=== PATIENT | male | born 1980 | race Caucasian/White ===

== ENCOUNTER 2016-07-15 11:23 | Inpatient (IN) | payer OTHER ==
[2016-07-15 13:36] VITALS: BMI 26.6
--- NOTE | 2016-07-15 14:35 | HP ---
CIWA Score - CIWA Score Nausea/Vomitin-No Nausea/No Vomiting Muscle Tremors: 4-Moderate,w/Arms Extend Anxiety: 2 Agitation: 2 Paroxysmal Sweats: 3 Orientation: 2-Disoriented Date<2 days Tacttile Disturbances: 2-Mild Itch/Numbness/Burn Auditory Disturbances: 0-None Visual Disturbances: 2-Mild Sensitivity Headache: 0-None Present CIWA-Ar Total Score: 17 Admission ROS S - HPI Chief Complaint: Pt. is here to Detox from Alcohol and Xanax. Allergies/Adverse Reactions: Allergies Allergy/AdvReac Type Severity Reaction Status Date / Time No Known Drug Allergies Allergy Severe Hives Verified 07/15/16 13:36 omega-3 fatty acids Allergy Severe Hives Verified 07/15/16 13:36 [From [place] [employer]-1000] [place] [employer] Allergy Unknown Hives Verified 07/15/16 13:36 [From [place] [employer]-1000] History of Present Illness: "Pt. is 35 YO male here to Detox from Alcohol and Xanax. Pt. has had several previous Detox admissions at [facility]. Pt. is a MMTP / OTP client (cannot remember name of program). Daily dose of Methadone Maintenance: 60 mg; last taken, today , 07/15/2016. Exam Limitations: Intoxication, Other (Lethargy.) - Ebola screening Have you traveled outside of the country in the last 21 days: No Have you had contact with anyone from an Ebola affected area: No Have you been sick,other than usual withdrawal symptoms: No Do you have a fever: No - Review of Systems Constitutional: Diaphoresis, Malaise EENT: reports: No Symptoms Reported Respiratory: reports: No Symptoms reported Cardiac: reports: No Symptoms Reported GI: reports: No Symptoms Reported : reports: No Symptoms Reported Musculoskeletal: reports: No Symptoms Reported Integumentary: reports: Pruritus (Pt. reports Psoriasis on back, arms, hands, buttocks, thighs.) Neuro: reports: No Symptoms reported Endocrine: reports: No Symptoms Reported Hematology: reports: No Symptoms Reported Psychiatric: reports: Judgement Intact, Mood/Affect Appropiate, Anxious, Depressed, Disorientated (To Day / Date.) Other Systems: Reviewed and Negative Patient History - Patient Medical History Hx Anemia: No Hx Asthma: No Hx Chronic Obstructive Pulmonary Disease (COPD): No Hx Cancer: No Hx Cardiac Disorders: No Hx Congestive Heart Failure: No Hx Hypertension: No Hx Hypercholesterolemia: No Hx Pacemaker: No HX Cerebrovascular Accident: No Hx Seizures: No Hx Dementia: No Hx Diabetes: No Hx Gastrointestinal Disorders: No Hx Liver Disease: No Hx Genitourinary Disorders: No Hx Sexually Transmitted Disorders: No Hx Renal Disease (ESRD): No Hx Thyroid Disease: No Hx Human Immunodeficiency Virus (HIV): No (2013 last) Hx Hepatitis C: No (Last Tested a Few years Ago: NEGATIVE.) Hx Depression: Yes Hx Suicide Attempt: No (PATIENT DENIES CURRENT SI / HI.) Hx Bipolar Disorder: Yes (treated with depakote and seroquel) Hx Schizophrenia: No Other Medical History: Psoriasis. - Patient Surgical History Past Surgical History: No Hx Neurologic Surgery: No Hx Cataract Extraction: No Hx Cardiac Surgery: No Hx Lung Surgery: No Hx Breast Surgery: No Hx Breast Biopsy: No Hx Abdominal Surgery: No Hx Appendectomy: No Hx Cholecystectomy: No Hx Genitourinary Surgery: No Hx Section: No Hx Orthopedic Surgery: No Anesthesia Reaction: No - PPD History Previous Implant?: Yes Documented Results: Negative w/proof Date: 02/22/16 Results: 0 mm PPD to be Administered?: No - Reproductive History Patient is a Female of Child Bearing Age (11 -55 yrs old): No (PATIENT IS MALE.) - Smoking Cessation Smoking history: Current every day smoker Have you smoked in the past 12 months: Yes Aproximately how many cigarettes per day: 5 Cigars Per Day: 0 Hx Chewing Tobacco Use: No Initiated information on smoking cessation: Yes 'Breaking Loose' booklet given: 07/15/16 (GIVEN ON UNIT.) - Substance & Tx. History Hx Alcohol Use: Yes Hx Substance Use: Yes Substance Use Type: Alcohol, Cocaine, Heroin, Tranquilizers Hx Substance Use Treatment: Yes (Previous Detox admissions at [facility].) - Substances Abused Heroin Route: Injection Frequency: 3-6 times per week Amount used: 4 bags Age of first use: 18 Date of Last Use: 07/15/16 Cocaine Route: Injection Frequency: 3-6 times per week Amount used: $20-30 Age of first use: 33 Date of Last Use: 07/14/16 Alcohol-beer/vodka Route: Oral Frequency: Daily Amount used: 2-6 pks./2 pts. Age of first use: 14 Date of Last Use: 07/15/16 Xanax Route: Oral Frequency: Daily Amount used: 10 mg. Age of first use: 20 Date of Last Use: 07/14/16 Family Disease History - Family Disease History Family Disease History: CA: Father (alcohol; Tumor (Removed).), Other: Father, Brother (ETOH DEPENDENT) Admission Physical Exam BHS - Vital Signs Vital Signs: Vital Signs - 24 hr 07/15/16 13:34 Temperature 96.9 F L Pulse Rate 65 Respiratory 20 Rate - Physical General Appearance: Yes: Intoxicated, Tremorous, Other (Lethargic.) HEENTM: Yes: Hearing grossly Normal, Normocephalic, Normal Voice, KARMA, Tm's normal Respiratory: Yes: Chest Non-Tender, Lungs Clear, No Respiratory Distress Neck: Yes: No masses,lesions,Nodules, Supple, Trachea in good position Breast: Yes: Breast Exam Deferred Cardiology: Yes: Regular Rhythm, Regular Rate, S1, S2 Abdominal: Yes: Normal Bowel Sounds, Non Tender, Flat, Soft Genitourinary: Yes: Within Normal Limits Back: Yes: Normal Inspection Extremities: Yes: Normal Range of Motion, Non-Tender, Tremors Neurological: Yes: Normal Mood/Affect, Disoriented (To Day / Date.) Integumentary: Yes: Dry, Warm, Track Calderon (2 on Dorsum of Right Hand, Healed, No signs of Infection noted.), Other (Red macular lesions noted on face, bilateral arms and hands, back, and bilateral legs.) Lymphatic: Yes: Within Normal Limits - Diagnostic (1) Alcohol dependence with uncomplicated withdrawal Current Visit: Yes Status: Acute (2) Opioid dependence with withdrawal Current Visit: Yes Status: Acute (3) Bipolar disorder Current Visit: Yes Status: Chronic Qualifiers: Active/Remission status: remission status unspecified Qualified Code(s) : F31.9 - Bipolar disorder, unspecified (4) Nicotine dependence Current Visit: Yes Status: Chronic Qualifiers: Nicotine product type: cigarettes Substance use status: uncomplicated Qualified Code(s): F17.210 - Nicotine dependence, cigarettes, uncomplicated (5) Psoriasis Current Visit: Yes Status: Chronic (6) Methadone maintenance therapy patient Current Visit: Yes Status: Chronic (7) Cocaine dependence, uncomplicated Current Visit: Yes Status: Acute (8) Sedative, hypnotic, or anxiolytic withdrawal Current Visit: Yes Status: Acute Cleared for Admission [facility] - Detox or Rehab [facility] Level of Care: Medically Managed Detox Regimen/Protocol: Valium [facility] Breath Alcohol Content Breath Alcohol Content: 0 Urine Drug Screen - Results Drug Screen Negative: No Urine Drug Screen Results: MEHUL-Cocaine, OPI-Opiates, BZO-Benzodiazepines, MTD- Methadone, OXY-Oxycodone
[2016-07-15] MEDS ORDERED: IBUPROFEN 400 MG TABLET (FP) PO PRN (14:53)
[2016-07-15] MEDS ORDERED: diazePAM 5 MG TABLET PO ONE (14:53)
[2016-07-15] MEDS ORDERED: P-EPHED 60MG/TRIPROLIDI 2.5MG TABLET PO PRN (14:53)
[2016-07-15] MEDS ORDERED: MAGNESIUM HYDROX 2400MG/30ML ORAL SUSPENSION 30 ML CUP PO PRN (14:53)
[2016-07-15] MEDS ORDERED: MENTHOL/PHENOL 1 EACH UD MM PRN (14:53)
[2016-07-15] MEDS ORDERED: ACETAMINOPHEN 325 MG TABLET (FP) PO PRN (14:53)
[2016-07-15] MEDS ORDERED: guaiFENesin/D-METHORPHAN HB 10 ML UNIT-DOSE CUPS PO PRN (14:53)
[2016-07-15] MEDS ORDERED: NICOTINE POLACRILEX 2 MG GUM BC PRN (14:53)
[2016-07-15] MEDS ORDERED: hydrOXYzine PAMOATE 50 MG CAPSULE (FP) PO PRN (14:53)
[2016-07-15] MEDS ORDERED: diphenhydrAMINE HCL 50 MG CAPSULE PO PRN (14:53)
[2016-07-15] MEDS ORDERED: LOPERAMIDE HCL 2 MG CAPSULE PO PRN (14:53)
[2016-07-15] MEDS ORDERED: MAG HYDROX/AL HYDROX/SIMETH 30 ML UNIT-DOSE CUP PO PRN (14:53)
[2016-07-15] MEDS ORDERED: MAGNESIUM CITRATE 300 ML BOTTLE PO PRN (14:53)
[2016-07-15] MEDS: NICOTINE 14 MG/24 HOURS TOPICAL PATCH TD SCH (17:48)
[2016-07-15] MEDS: TRIAMCINOLONE ACET 0.5% OINT 15 GM TUBE TP SCH ×2 (19:54→22:32)
[2016-07-15] MEDS ORDERED: CLOBETASOL PROPIONATE 30 GM TP SCH (22:00)
[2016-07-15] MEDS: diazePAM 5 MG TABLET PO SCH (22:32)
[2016-07-15] MEDS: THIAMINE HCL 100 MG TABLET (FP) PO SCH (22:32)
[2016-07-15] MEDS: BACITRACIN 0.9 GM PACKET TP SCH (22:34)
[2016-07-16] MEDS: diazePAM 5 MG TABLET PO PRN ×4 (02:45→17:41)
[2016-07-16] MEDS: diazePAM 5 MG TABLET PO SCH ×3 (05:59→22:45)
[2016-07-16] MEDS ORDERED: METHADONE HCL 10 MG TABLET PO SCH (09:15)
[2016-07-16] MEDS ORDERED: METHADONE HCL 10 MG TABLET ONE (09:48)
[2016-07-16] MEDS ORDERED: METHADONE HCL 40 MG DISPERSABLE TABLET ONE (09:48)
[2016-07-16 09:58] LABS: BASOPHIL 0.7 % (0-2.0); EOSINOPHIL 5.8 % (0-4.5); MCH 28.7 pg (25.7-33.7); MCHC 33.5 g/dl (32.0-35.9); MEAN CELL VOLUME 85.9 fl (80-96); MEAN PLT VOLUME 8.4 fl (7.5-11.1); NEUTROPHILS 39.8 % (42.8-82.8); PLATELET COUNT 174 K/MM3 (134-434); RDW 13.2 % (11.9-15.9)
[2016-07-16 10:00] LABS: ALBUMIN 3.4 g/dl (3.4-5.0); ANION GAP 6 (8-16); CALCIUM 8.9 mg/dL (8.5-10.1); CO2 30 mmol/L (21-32); GLUCOSE,RANDOM 99 mg/dL (74-106)
[2016-07-16 10:03] LABS: ALK PHOS 95 U/L (45-117); BILIRUBIN,TOTAL 0.3 mg/dL (0.2-1.0); CREATININE 0.8 mg/dL (0.7-1.3); SGOT/AST 27 U/L (15-37); SGPT/ALT 29 U/L (12-78)
[2016-07-16] MEDS: PRENATAL VITAMINS W/ FOLIC ACID TABLET (FP) PO SCH (10:26)
[2016-07-16] MEDS: METHADONE 40 MG, METHADONE 30 MG PO SCH (10:26)
[2016-07-16] MEDS: NICOTINE 14 MG/24 HOURS TOPICAL PATCH TD SCH (10:27)
[2016-07-16] MEDS: BACITRACIN 0.9 GM PACKET TP SCH ×2 (10:27→22:43)
[2016-07-16] MEDS: TRIAMCINOLONE ACET 0.5% OINT 15 GM TUBE TP SCH ×4 (10:27→22:43)
--- NOTE | 2016-07-16 10:35 | CONSULT ---
[facility] Psychiatric Consult - Data Date of interview: 07/16/16 Admission source: [facility] Identifying data: Readmission to [facility] for this 35 y/o male seeking detox [address] for alcohol,cocaine,opioid and benzodiazepine (xanax) dependence.Patient is single without children,domiciled,unemployed and supported on [facility] benefits. Substance Abuse History: - Smoking Cessation. Smoking history: Current every day smoker. Have you smoked in the past 12 months: Yes. Aproximately how many cigarettes per day: 5. Cigars Per Day: 0. Hx Chewing Tobacco Use: No. Initiated information on smoking cessation: Yes. 'Breaking Loose' booklet given : 07/15/16 (GIVEN ON UNIT.). - Substance & Tx. History. Hx Alcohol Use: Yes. Hx Substance Use: Yes. Substance Use Type: Alcohol, Cocaine, Heroin, Tranquilizers. Hx Substance Use Treatment: Yes (Previous Detox admissions at [facility] - Substances Abused. Heroin. Route: Injection. Frequency: 3-6 times per week. Amount used: 4 bags. Age of first use: 18. Date of Last Use: 07/15/16. Cocaine. Route: Injection. Frequency: 3-6 times per week. Amount used: $20-30. Age of first use: 33. Date of Last Use: 07/14/16. Alcohol-beer/vodka. Route: Oral. Frequency: Daily. Amount used: 2-6 pks./2 pts. Age of first use: 14. Date of Last Use: 07/15/16. Xanax. Route: Oral. Frequency: Daily. Amount used: 10 mg. Age of first use: 20. Date of Last Use: 07/14/16 Medical History: Psoriasis. Psychiatric History: Patient is a hostile and irritable historian.Reluctant to provide personal information.He does,however,report the diagnosis of Schizoaffective Disorder/PTSD and he mentions " a couple " of psychiatric hospitalizations ([facility] and an unamed facility in [facility].Medications endorsed : depakote, seroquel and lorazepam.No doses given.No clear information about approximate date of previous intake.During the interview,the patient showed more interest in " getting my methadone now " than providing longitudinal information.Mr Avelar is currently on methadone maintenance (70 mg/day).No reported history of suicide attempts. Physical/Sexual Abuse/Trauma History: Patient declines to discuss life events/ stressors that support the diagnosis of PTSD." I have seen so much trash throughout my life." No further comment.Patient declines to offer clarification. Additional Comment: Urine Drug Screen Results: MEHUL-Cocaine, OPI-Opiates, BZO- Benzodiazepines, MTD-Methadone, OXY-Oxycodone.Noted. Mental Status Exam - Mental Status Exam Alert and Oriented to: Time, Place, Person Cognitive Function: Good Patient Appearance: Unkempt, Disheveled Mood: Nervous, Withdrawn, Anxious, Irritable Affect: Mood Congruent Patient Behavior: Fatigued, Uncooperative, Resitive to Care Speech Pattern: Clear, Delayed (non spontaneous but coherent and sensical) Voice Loudness: Normal (with heavy slavic accent) Thought Process: Goal Oriented Thought Disorder: Not Present Hallucinations: Denies Suicidal Ideation: Denies Homicidal Ideation: Denies Insight/Judgement: Poor Sleep: Poorly, Difficulty falling asleep Appetite: Good Muscle strength/Tone: Normal Gait/Station: Normal Psychiatric Findings - Problem List ([place] 1, 2,3) (1) Alcohol dependence with uncomplicated withdrawal Current Visit: Yes Status: Acute (2) Cocaine dependence, uncomplicated Current Visit: Yes Status: Acute (3) Opioid dependence with withdrawal Current Visit: Yes Status: Acute (4) Sedative, hypnotic, or anxiolytic withdrawal Current Visit: Yes Status: Acute (5) Bipolar disorder Current Visit: Yes Status: Chronic Qualifiers: Active/Remission status: remission status unspecified Qualified Code(s) : F31.9 - Bipolar disorder, unspecified (6) Nicotine dependence Current Visit: Yes Status: Chronic Qualifiers: Nicotine product type: cigarettes Substance use status: uncomplicated Qualified Code(s): F17.210 - Nicotine dependence, cigarettes, uncomplicated (7) Methadone maintenance therapy patient Current Visit: Yes Status: Chronic (8) PTSD (post-traumatic stress disorder) Current Visit: No Status: Chronic (9) Psoriasis Current Visit: Yes Status: Chronic (10) Insomnia Current Visit: Yes Status: Acute - Initial Treatment Plan Initial Treatment Plan: Psychoeducation.Detoxification.Medications : depakote 250 mg po bid + seroquel 100 mg po hs.Side effects/benefits discussed with the patient.He agrees with this careplan.Pharmacy claims reviewed.No recent filled scripts for valproate and seroquel (02/2016).Observation.
--- NOTE | 2016-07-16 12:04 | EKG ---
Test Reason : Blood Pressure : / mmHG Vent. Rate : 054 BPM Atrial Rate : 054 BPM P-R Int : 206 ms QRS Dur : 100 ms QT Int : 466 ms P-R-T Axes : 043 069 043 degrees QTc Int : 441 ms SINUS BRADYCARDIA POSSIBLE LEFT ATRIAL ENLARGEMENT BORDERLINE ECG NO PREVIOUS ECGS AVAILABLE Confirmed by DESTIN WINN MD ([id number]) on 07/16/2016 12:03:42 PM Referred By: Confirmed By:DESTNI WINN MD
--- NOTE | 2016-07-16 14:33 | PN ---
S CIWA - CIWA Score Nausea/Vomitin-No Nausea/No Vomiting Muscle Tremors: 3 Anxiety: 4-Mod. Anxious/Guarded Agitation: 2 Paroxysmal Sweats: 3 Orientation: 0-Oriented Tacttile Disturbances: 1-Very Mild Itch/Numbness Auditory Disturbances: 0-None Visual Disturbances: 0-None Headache: 0-None Present CIWA-Ar Total Score: 13 BHS Progress Note (SOAP) Subjective: Anxiety,tremors,interrupted sleep,sweating,restless Objective: 07/16/16 14:33 Vital Signs - 8 hr 07/16/16 10:27 Temperature 97 F L Pulse Rate 66 Respiratory 18 Rate Blood Pressure 116/68 Laboratory Tests 07/16/16 07/16/16 07/16/16 07:00 07:00 07:00 WBC 6.0 RBC 4.72 Hgb 13.6 Hct 40.5 MCV 85.9 MCHC 33.5 RDW 13.2 Plt Count 174 MPV 8.4 Neutrophils % 39.8 L Lymphocytes % 43.6 H Monocytes % 10.1 Eosinophils % 5.8 H Basophils % 0.7 Sodium 141 Potassium 4.1 Chloride 105 Carbon Dioxide 30 Anion Gap 6 L BUN 16 Creatinine 0.8 Creat Clearance w eGFR > 60 Random Glucose 99 Calcium 8.9 Total Bilirubin 0.3 D AST 27 ALT 29 D Alkaline Phosphatase 95 Total Protein 6.0 L Albumin 3.4 RPR Titer Nonreactive labs noted Assessment: 07/16/16 14:33 withdrawal sx. Plan: continue detox
[2016-07-16] MEDS ORDERED: QUEtiapine FUMARATE 100 MG TABLET (FP) PO SCH (22:00)
[2016-07-16] MEDS: DIVALPROEX SODIUM 250 MG TABLET E.C. (FP) PO SCH (22:45)
[2016-07-16] MEDS: THIAMINE HCL 100 MG TABLET (FP) PO SCH (22:52)
[2016-07-17] MEDS: diazePAM 5 MG TABLET PO PRN ×3 (00:59→12:24)
[2016-07-17] MEDS ORDERED: METHADONE HCL 10 MG TABLET ONE (04:28)
[2016-07-17] MEDS ORDERED: METHADONE HCL 40 MG DISPERSABLE TABLET ONE (04:29)
[2016-07-17] MEDS: METHADONE 40 MG, METHADONE 30 MG PO SCH (05:45)
[2016-07-17] MEDS ORDERED: diazePAM 5 MG TABLET PO SCH (10:00)
[2016-07-17] MEDS: TRIAMCINOLONE ACET 0.5% OINT 15 GM TUBE TP SCH ×2 (10:38→14:26)
[2016-07-17] MEDS: BACITRACIN 0.9 GM PACKET TP SCH (10:38)
[2016-07-17] MEDS: PRENATAL VITAMINS W/ FOLIC ACID TABLET (FP) PO SCH (10:38)
[2016-07-17] MEDS: DIVALPROEX SODIUM 250 MG TABLET E.C. (FP) PO SCH (10:38)
[2016-07-17] MEDS: NICOTINE 14 MG/24 HOURS TOPICAL PATCH TD SCH (10:38)
--- NOTE | 2016-07-17 10:54 | PN ---
S CIWA - CIWA Score Nausea/Vomitin-No Nausea/No Vomiting Muscle Tremors: 3 Anxiety: 4-Mod. Anxious/Guarded Agitation: 3 Paroxysmal Sweats: 3 Orientation: 0-Oriented Tacttile Disturbances: 0-None Auditory Disturbances: 0-None Visual Disturbances: 0-None Headache: 0-None Present CIWA-Ar Total Score: 13 BHS Progress Note (SOAP) Subjective: sweating,interrupted sleep,restless,tremors,anxiety Objective: 07/17/16 10:52 Vital Signs - 8 hr 07/17/16 07/17/16 07/17/16 03:30 06:37 09:58 Temperature 95.9 F L 96.8 F L Pulse Rate 68 60 Respiratory 18 18 18 Rate Blood Pressure 115/69 108/64 Laboratory Tests 07/16/16 07/16/16 07/16/16 07:00 07:00 07:00 WBC 6.0 RBC 4.72 Hgb 13.6 Hct 40.5 MCV 85.9 MCHC 33.5 RDW 13.2 Plt Count 174 MPV 8.4 Neutrophils % 39.8 L Lymphocytes % 43.6 H Monocytes % 10.1 Eosinophils % 5.8 H Basophils % 0.7 Sodium 141 Potassium 4.1 Chloride 105 Carbon Dioxide 30 Anion Gap 6 L BUN 16 Creatinine 0.8 Creat Clearance w eGFR > 60 Random Glucose 99 Calcium 8.9 Total Bilirubin 0.3 D AST 27 ALT 29 D Alkaline Phosphatase 95 Total Protein 6.0 L Albumin 3.4 Valproic Acid RPR Titer Nonreactive 07/17/16 06:00 WBC RBC Hgb Hct MCV MCHC RDW Plt Count MPV Neutrophils % Lymphocytes % Monocytes % Eosinophils % Basophils % Sodium Potassium Chloride Carbon Dioxide Anion Gap BUN Creatinine Creat Clearance w eGFR Random Glucose Calcium Total Bilirubin AST ALT Alkaline Phosphatase Total Protein Albumin Valproic Acid < 3.000 L RPR Titer labs noted Assessment: 07/17/16 10:53 withdrawal sx. Plan: continue detox
[2016-07-17 14:07] VITALS: BP 115/69; PULSE 67; TEMP 97.8
[2016-07-19] MEDS ORDERED: diazePAM 5 MG TABLET PO SCH (10:00)
--- NOTE | 2016-07-28 11:03 | DS ---
[facility] Detox Discharge Summary Admission Date: 07/15/16 Discharge Date: 07/17/16 - History Present History: Alcohol Dependence, Cocaine Dependence, Sedative Dependence, MMTP Pertinent Past History: psoriasis PTSD - Physical Exam Results Vital Signs: Vital Signs Temperature 97.8 F 07/17/16 14:05 Pulse Rate 67 07/17/16 14:05 Respiratory Rate 18 07/17/16 14:05 Blood Pressure 115/69 07/17/16 14:05 O2 Sat by Pulse Oximetry (%) Pertinent Admission Physical Exam Findings: Withdrawal sx. Laboratory Last Values WBC 6.0 K/mm3 (4.0-10.0) 07/16/16 07:00 RBC 4.72 M/mm3 (4.00-5.60) 07/16/16 07:00 Hgb 13.6 GM/dL (11.7-16.9) 07/16/16 07:00 Hct 40.5 % (35.4-49) 07/16/16 07:00 MCV 85.9 fl (80-96) 07/16/16 07:00 MCHC 33.5 g/dl (32.0-35.9) 07/16/16 07:00 RDW 13.2 % (11.9-15.9) 07/16/16 07:00 Plt Count 174 K/MM3 (134-434) 07/16/16 07:00 MPV 8.4 fl (7.5-11.1) 07/16/16 07:00 Neutrophils % 39.8 % (42.8-82.8) L 07/16/16 07:00 Lymphocytes % 43.6 % (8-40) H 07/16/16 07:00 Monocytes % 10.1 % (3.8-10.2) 07/16/16 07:00 Eosinophils % 5.8 % (0-4.5) H 07/16/16 07:00 Basophils % 0.7 % (0-2.0) 07/16/16 07:00 Sodium 141 mmol/L (136-145) 07/16/16 07:00 Potassium 4.1 mmol/L (3.5-5.1) 07/16/16 07:00 Chloride 105 mmol/L (98-107) 07/16/16 07:00 Carbon Dioxide 30 mmol/L (21-32) 07/16/16 07:00 Anion Gap 6 (8-16) L 07/16/16 07:00 BUN 16 mg/dL (7-18) 07/16/16 07:00 Creatinine 0.8 mg/dL (0.7-1.3) 07/16/16 07:00 Creat Clearance w eGFR > 60 (>60) 07/16/16 07:00 Random Glucose 99 mg/dL (74-106) 07/16/16 07:00 Calcium 8.9 mg/dL (8.5-10.1) 07/16/16 07:00 Total Bilirubin 0.3 mg/dL (0.2-1.0) D 07/16/16 07:00 AST 27 U/L (15-37) 07/16/16 07:00 ALT 29 U/L (12-78) D 07/16/16 07:00 Alkaline Phosphatase 95 U/L (45-117) 07/16/16 07:00 Total Protein 6.0 g/dl (6.4-8.2) L 07/16/16 07:00 Albumin 3.4 g/dl (3.4-5.0) 07/16/16 07:00 Valproic Acid < 3.000 ug/ml (50-100) L 07/17/16 06:00 RPR Titer Nonreactive (NONREACTIVE) 07/16/16 07:00 labs noted - Medication Discharge Medications: Ambulatory Orders Clobetasol Propionate [Temovate] 30 gm TP BID 04/17/15 Quetiapine Fumarate [Seroquel -] 400 mg PO HS #30 tablet 02/21/16 - Diagnosis (1) Alcohol dependence with uncomplicated withdrawal Status: Acute (2) Cocaine dependence, uncomplicated Status: Acute (3) Sedative, hypnotic or anxiolytic dependence with withdrawal, uncomplicated Status: Acute (4) Methadone maintenance therapy patient Status: Chronic (5) Nicotine dependence Status: Chronic Qualifiers: Nicotine product type: cigarettes Substance use status: uncomplicated Qualified Code(s): F17.210 - Nicotine dependence, cigarettes, uncomplicated (6) PTSD (post-traumatic stress disorder) Status: Chronic (7) Psoriasis Status: Chronic - AMA Did Patient Leave Against Medical Advice: Yes
== END 2016-07-17 15:38 | disposition left against medical advice (07) | DRG 894 ==
LOC: YASAS 11:23 → Y3N 14:32
PROVIDERS: ADMIT Internal Medicine; ATTEND Internal Medicine
PROC: HZ2ZZZZ Detoxification Services for Substance Abuse Treatment (ICD-10-PCS; principal; 2016-07-17)
DX: F11.23 Opioid dependence with withdrawal (principal); F14.20 Cocaine dependence, uncomplicated; F13.230 Sedative, hypnotic or anxiolytic dependence with withdrawal, uncomplicated; F10.230 Alcohol dependence with withdrawal, uncomplicated; F17.210 Nicotine dependence, cigarettes, uncomplicated; F31.9 Bipolar disorder, unspecified; G47.00 Insomnia, unspecified; L40.9 Psoriasis, unspecified
CPT/HCPCS: 36415; 80053; 80164; 85025; 86593; 93005; 93010

== ENCOUNTER 2016-11-14 12:56 | Inpatient (IN) | payer OTHER ==
[2016-11-14 15:59] VITALS: BMI 25.4
--- NOTE | 2016-11-14 18:08 | HP ---
CIWA Score - CIWA Score Nausea/Vomitin-Mild Nausea/No Vomiting Muscle Tremors: 4-Moderate,w/Arms Extend Anxiety: 4-Mod. Anxious/Guarded Agitation: 4-Moderately Restless Paroxysmal Sweats: 1-Minimal Palms Moist Orientation: 1-Uncertain about Date Tacttile Disturbances: 0-None Auditory Disturbances: 0-None Visual Disturbances: 0-None Headache: 0-None Present CIWA-Ar Total Score: 15 Admission ROS S - HPI Chief Complaint: WITHDRAWAL SX Allergies/Adverse Reactions: Allergies Allergy/AdvReac Type Severity Reaction Status Date / Time No Known Drug Allergies Allergy Severe Hives Verified 11/14/16 16:48 omega-3 fatty acids Allergy Severe Hives Verified 11/14/16 16:48 [From [place] [employer]-1000] [place] [employer] Allergy Unknown Hives Verified 11/14/16 16:48 [From [employer]-1000] History of Present Illness: 35 YEARS OLD MALE WITH LONG HISTORY OF ALCOHOL XANAX NICOTINE DEPENDENCE, HAS PSORIASIS AND BIPOLAR II IS ADMITTED TO DETOX Exam Limitations: No Limitations - Ebola screening Have you traveled outside of the country in the last 21 days: No Have you had contact with anyone from an Ebola affected area: No Have you been sick,other than usual withdrawal symptoms: No Do you have a fever: No - Review of Systems Constitutional: Chills, Loss of Appetite, Changes in sleep, Unintentional Wgt. Loss, Unexplained wgt Loss EENT: reports: Other (HEAD TRAUMA X MONTHS = OCCIPITAL) Respiratory: reports: No Symptoms reported Cardiac: reports: No Symptoms Reported GI: reports: Nausea, Poor Appetite, Poor Fluid Intake, Indigestion, Abdominal cramping : reports: No Symptoms Reported Musculoskeletal: reports: Back Pain, Joint Pain, Muscle Pain, Neck Pain Integumentary: reports: Change in Color, Lesions (PSORIASIS) Neuro: reports: Tremors Endocrine: reports: No Symptoms Reported Hematology: reports: No Symptoms Reported Psychiatric: reports: Judgement Intact, Anxious, Depressed Other Systems: Reviewed and Negative Patient History - Patient Medical History Hx Anemia: No Hx Asthma: No Hx Chronic Obstructive Pulmonary Disease (COPD): No Hx Cancer: No Hx Cardiac Disorders: No Hx Congestive Heart Failure: No Hx Hypertension: No Hx Hypercholesterolemia: No Hx Pacemaker: No HX Cerebrovascular Accident: No Hx Seizures: No Hx Dementia: No Hx Diabetes: No Hx Gastrointestinal Disorders: No Hx Liver Disease: No Hx Genitourinary Disorders: No Hx Sexually Transmitted Disorders: No Hx Renal Disease (ESRD): No Hx Thyroid Disease: No Hx Human Immunodeficiency Virus (HIV): No (2013 last) Hx Hepatitis C: No (Last Tested a Few years Ago: NEGATIVE.) Hx Depression: No Hx Suicide Attempt: No Hx Bipolar Disorder: Yes (treated with depakote and seroquel) Hx Schizophrenia: No - Patient Surgical History Past Surgical History: No Hx Neurologic Surgery: No Hx Cataract Extraction: No Hx Cardiac Surgery: No Hx Lung Surgery: No Hx Breast Surgery: No Hx Breast Biopsy: No Hx Abdominal Surgery: No Hx Appendectomy: No Hx Cholecystectomy: No Hx Genitourinary Surgery: No Hx Orthopedic Surgery: No - PPD History Previous Implant?: Yes Documented Results: Negative w/o proof Implanted On Prior R Admission?: Yes Date: 02/22/16 Results: 0 mm PPD to be Administered?: No - Smoking Cessation Smoking history: Current every day smoker Have you smoked in the past 12 months: Yes Aproximately how many cigarettes per day: 10 Cigars Per Day: 0 Hx Chewing Tobacco Use: No Initiated information on smoking cessation: Yes 'Breaking Loose' booklet given: 11/14/16 - Substance & Tx. History Hx Alcohol Use: Yes Hx Substance Use: Yes Substance Use Type: Alcohol, Cocaine, Heroin, Tranquilizers Hx Substance Use Treatment: Yes (07/15-07/17/16) - Substances Abused Alprazolam (Xanax) Route: Oral Frequency: Daily Amount used: 4-6MG Age of first use: 21 Date of Last Use: 11/14/16 Alcohol Route: Oral Frequency: Daily Amount used: 2 22 OZ BEERS Age of first use: 16 Date of Last Use: 11/13/16 Cocaine Route: Inhalation Frequency: 3-6 times per week Amount used: $20-40 Age of first use: 21 Date of Last Use: 11/12/16 Family Disease History - Family Disease History Family Disease History: CA: Father (alcohol; Tumor (Removed).), Other: Father, Brother (ETOH DEPENDENT) Admission Physical Exam BHS - Vital Signs Vital Signs: Vital Signs - 24 hr 11/14/16 15:56 Temperature 96.8 F L Pulse Rate 64 Respiratory 18 Rate Blood Pressure 133/73 - Physical General Appearance: Yes: Appropriately Dressed, Mild Distress, Thin, Tremorous, Irritable, Sweating, Anxious HEENTM: Yes: Hearing grossly Normal, Normal ENT Inspection, Normocephalic, Normal Voice Respiratory: Yes: Chest Non-Tender, Lungs Clear, Normal Breath Sounds, No Respiratory Distress, No Accessory Muscle Use Neck: Yes: Supple, Trachea in good position Breast: Yes: Breasts Symetrical Cardiology: Yes: Regular Rhythm, Regular Rate, S1, S2 Abdominal: Yes: Non Tender, Soft Genitourinary: Yes: Within Normal Limits Back: Yes: Normal Inspection Musculoskeletal: Yes: full range of Motion, Gait Steady, Back pain, Muscle Pain Extremities: Yes: Normal Range of Motion, Non-Tender, Tremors Neurological: Yes: Alert, Motor Strength 5/5, Normal Response, Sensory Deficit Integumentary: Yes: Warm, Other (PSORIASIS) Lymphatic: Yes: Within Normal Limits - Diagnostic (1) Alcohol dependence with uncomplicated withdrawal Current Visit: Yes Status: Acute (2) Sedative, hypnotic or anxiolytic dependence with withdrawal, uncomplicated Current Visit: Yes Status: Acute (3) Weight decreased Current Visit: Yes Status: Acute (4) Nicotine dependence Current Visit: Yes Status: Acute Qualifiers: Nicotine product type: cigarettes Substance use status: in withdrawal Qualified Code(s): F17.213 - Nicotine dependence, cigarettes, with withdrawal (5) Psoriasis Current Visit: Yes Status: Chronic (6) Bipolar II disorder Current Visit: Yes Status: Suspected Cleared for Admission [facility] - Detox or Rehab [facility] Level of Care: Medically Managed Detox Regimen/Protocol: Valium [facility] Breath Alcohol Content Breath Alcohol Content: 0 Urine Drug Screen - Results Drug Screen Negative: No Urine Drug Screen Results: MEHUL-Cocaine, OPI-Opiates, BZO-Benzodiazepines, MTD- Methadone
[2016-11-14] MEDS ORDERED: guaiFENesin/D-METHORPHAN HB 10 ML UNIT-DOSE CUPS PO PRN (18:11)
[2016-11-14] MEDS ORDERED: P-EPHED 60MG/TRIPROLIDI 2.5MG TABLET PO PRN (18:11)
[2016-11-14] MEDS ORDERED: MAGNESIUM HYDROX 2400MG/30ML ORAL SUSPENSION 30 ML CUP PO PRN (18:11)
[2016-11-14] MEDS ORDERED: LOPERAMIDE HCL 2 MG CAPSULE PO PRN (18:11)
[2016-11-14] MEDS ORDERED: ACETAMINOPHEN 325 MG TABLET (FP) PO PRN (18:11)
[2016-11-14] MEDS ORDERED: MENTHOL/PHENOL 1 EACH UD MM PRN (18:11)
[2016-11-14] MEDS ORDERED: MAG HYDROX/AL HYDROX/SIMETH 30 ML UNIT-DOSE CUP PO PRN (18:11)
[2016-11-14] MEDS ORDERED: MAGNESIUM CITRATE 300 ML BOTTLE PO PRN (18:11)
[2016-11-14] MEDS ORDERED: NICOTINE POLACRILEX 2 MG GUM BC PRN (18:16)
[2016-11-14] MEDS ORDERED: hydrOXYzine PAMOATE 50 MG CAPSULE (FP) PO PRN (18:16)
[2016-11-14] MEDS ORDERED: diazePAM 5 MG TABLET PO ONE (19:00)
[2016-11-14] MEDS: FLUOCINONIDE 0.05% TOP OINT (60 GM TUBE) TP SCH (22:03)
[2016-11-14] MEDS: THIAMINE HCL 100 MG TABLET (FP) PO SCH (22:04)
[2016-11-14] MEDS: diphenhydrAMINE HCL 50 MG CAPSULE PO PRN (22:04)
[2016-11-14] MEDS: diazePAM 5 MG TABLET PO SCH (22:04)
[2016-11-14 22:40] LABS: URINE APPEARANCE TURBID; URINE BILIRUBIN NEGATIVE (NEGATIVE); URINE BLOOD NEGATIVE (NEGATIVE); URINE COLOR YELLOW; URINE GLUCOSE (UA) NEGATIVE (NEGATIVE); URINE KETONE TRACE (NEGATIVE); URINE LEUK ESTERASE NEGATIVE (NEGATIVE); URINE NITRITE NEGATIVE (NEGATIVE); URINE PROTEIN NEGATIVE (NEGATIVE); URINE UROBILINOGEN NEGATIVE E.U./dl (0.2-1.0)
[2016-11-15] MEDS: diazePAM 5 MG TABLET PO PRN ×3 (04:04→17:12)
[2016-11-15] MEDS: diazePAM 5 MG TABLET PO SCH ×3 (05:50→22:05)
--- NOTE | 2016-11-15 08:34 | CONSULT ---
[facility] Psychiatric Consult - Data Date of interview: 11/15/16 Admission source: [facility] Identifying data: This is 35 years old male with psychiartic hospitalization history, history of Schizoaffective disorder, intoxicated with: Alcohol, Opioids, Xanax and Nicotine Substance Abuse History: - Smoking Cessation. Smoking history: Current every day smoker. Have you smoked in the past 12 months: Yes. Aproximately how many cigarettes per day: 10. Cigars Per Day: 0. Hx Chewing Tobacco Use: No. Initiated information on smoking cessation: Yes. 'Breaking Loose' booklet given : 11/14/16. - Substance & Tx. History. Hx Alcohol Use: Yes. Hx Substance Use : Yes. Substance Use Type: Alcohol, Cocaine, Heroin, Tranquilizers. Hx Substance Use Treatment: Yes (07/15-07/17/16). - Substances Abused. Alprazolam (Xanax). Route: Oral. Frequency: Daily. Amount used: 4-6MG. Age of first use: 21. Date of Last Use: 11/14/16. Alcohol. Route: Oral. Frequency: Daily. Amount used: 2 22 OZ BEERS. Age of first use: 16. Date of Last Use: 11/13/16. Cocaine. Route: Inhalation. Frequency: 3-6 times per week. Amount used: $20-40. Age of first use: 21. Date of Last Use: 11/12/16 Medical History: Weightn loss, Syncope, MMTP Psychiatric History: Patient reports to carry: Bipolar disordwer, Schizoaffective disorder, PTSD with most recent psychiatric admission for safety at [facility] on 2014 for 2 weeks, currently reports tasking : Seroquel 400mg po qhs, reports has been on 800mg po qhs prior to strating to abuse drugs. Physical/Sexual Abuse/Trauma History: Denies Additional Comment: Seroquel 400mg po qhs Mental Status Exam - Mental Status Exam Alert and Oriented to: Person Cognitive Function: Fair Patient Appearance: Unkempt Mood: Sad Affect: Flat Patient Behavior: Sedated Speech Pattern: Delayed Voice Loudness: Mildly Soft/Quiet Thought Process: Circumstantial Thought Disorder: Being Controlled Hallucinations: Denies Suicidal Ideation: Denies Homicidal Ideation: Denies Insight/Judgement: Fair Sleep: Difficulty falling asleep Appetite: Weight loss Muscle strength/Tone: Moderate Hypotonicity Gait/Station: Shuffling Additional Comments: Seroquel 400mg po qhs Psychiatric Findings - Problem List ([place] 1, 2,3) (1) Alcohol dependence with uncomplicated withdrawal Current Visit: Yes Status: Acute (2) Nicotine dependence Current Visit: Yes Status: Acute Qualifiers: Nicotine product type: cigarettes Substance use status: in withdrawal Qualified Code(s): F17.213 - Nicotine dependence, cigarettes, with withdrawal (3) Sedative, hypnotic or anxiolytic dependence with withdrawal, uncomplicated Current Visit: Yes Status: Acute (4) Bipolar II disorder Current Visit: Yes Status: Suspected (5) Alcohol dependence, episodic drinking behavior Current Visit: No Status: Acute (6) Cocaine dependence, uncomplicated Current Visit: No Status: Acute (7) Opioid dependence with withdrawal Current Visit: No Status: Acute (8) Sedative, hypnotic, or anxiolytic withdrawal Current Visit: No Status: Acute (9) Bipolar disorder Current Visit: No Status: Chronic Qualifiers: Active/Remission status: remission status unspecified Qualified Code(s) : F31.9 - Bipolar disorder, unspecified (10) Methadone maintenance therapy patient Current Visit: No Status: Chronic (11) PTSD (post-traumatic stress disorder) Current Visit: No Status: Chronic - Initial Treatment Plan Initial Treatment Plan: Seroquel 400mg po qhs
[2016-11-15] MEDS: METHADONE HCL 40 MG DISPERSABLE TABLET PO SCH (08:50)
[2016-11-15 09:44] LABS: MCH 28.4 pg (25.7-33.7); MCHC 33.6 g/dl (32.0-35.9); MEAN CELL VOLUME 84.7 fl (80-96); MEAN PLT VOLUME 7.6 fl (7.5-11.1); PLATELET COUNT 217 K/MM3 (134-434); RDW 13.1 % (11.9-15.9); WHITE BLOOD COUNT 7.2 K/mm3 (4.0-10.0)
[2016-11-15] MEDS: NICOTINE 14 MG/24 HOURS TOPICAL PATCH TD SCH (09:54)
[2016-11-15] MEDS: FLUOCINONIDE 0.05% TOP OINT (60 GM TUBE) TP SCH ×4 (09:54→22:52)
[2016-11-15] MEDS: PRENATAL VITAMINS W/ FOLIC ACID TABLET (FP) PO SCH (09:54)
[2016-11-15 13:27] LABS: ALBUMIN 3.4 g/dl (3.4-5.0); ALK PHOS 75 U/L (45-117); ANION GAP 10 (8-16); BILIRUBIN,TOTAL 0.5 mg/dL (0.2-1.0); CALCIUM 8.5 mg/dL (8.5-10.1); CO2 28 mmol/L (21-32); CREATININE 0.8 mg/dL (0.7-1.3); GLUCOSE,RANDOM 86 mg/dL (74-106); SGOT/AST 27 U/L (15-37); SGPT/ALT 57 U/L (12-78); TOT PROT 6.1 g/dl (6.4-8.2)
--- NOTE | 2016-11-15 13:39 | PN ---
[facility] CIWA - CIWA Score Nausea/Vomitin-Mild Nausea/No Vomiting Muscle Tremors: 3 Anxiety: 2 Agitation: 3 Paroxysmal Sweats: 3 Orientation: 0-Oriented Tacttile Disturbances: 2-Mild Itch/Numbness/Burn Auditory Disturbances: 2-Mild Harshness/Frighten Visual Disturbances: 0-None Headache: 0-None Present CIWA-Ar Total Score: 16 BHS Progress Note (SOAP) Subjective: Interrupted sleep, Sweating, Tremors. Objective: PT. A & O X 3, OBSERVED AMBULATING ON UNIT. NO ACUTE DISTRESS. 11/15/16 13:36 Vital Signs Temperature 97.7 F 11/15/16 12:56 Pulse Rate 56 L 11/15/16 12:56 Respiratory Rate 18 11/15/16 12:56 Blood Pressure 125/78 11/15/16 12:56 O2 Sat by Pulse Oximetry (%) Laboratory Tests 11/14/16 11/15/16 11/15/16 22:15 07:00 07:00 WBC 7.2 RBC 4.82 Hgb 13.7 Hct 40.8 MCV 84.7 MCHC 33.6 RDW 13.1 Plt Count 217 D MPV 7.6 Sodium 140 Potassium 4.1 Chloride 102 Carbon Dioxide 28 Anion Gap 10 BUN 15 Creatinine 0.8 Creat Clearance w eGFR > 60 Random Glucose 86 Calcium 8.5 Total Bilirubin 0.5 D AST 27 ALT 57 D Alkaline Phosphatase 75 D Total Protein 6.1 L Albumin 3.4 Urine Color Yellow Urine Appearance Turbid Urine pH 5.0 Ur Specific [place] >= 1.030 H Urine Protein Negative Urine Glucose (UA) Negative Urine Ketones Trace H Urine Blood Negative Urine Nitrite Negative Urine Bilirubin Negative Urine Urobilinogen Negative Ur Leukocyte Esterase Negative LABS NOTED. Assessment: 11/15/16 13:36 WITHDRAWAL SYMPTOMS. Plan: CONTINUE DETOX.
[2016-11-15] MEDS: THIAMINE HCL 100 MG TABLET (FP) PO SCH (22:05)
[2016-11-15] MEDS: diphenhydrAMINE HCL 50 MG CAPSULE PO PRN (22:06)
[2016-11-15] MEDS: QUEtiapine FUMARATE 200 MG TABLET PO SCH (22:51)
[2016-11-16] MEDS: diazePAM 5 MG TABLET PO PRN ×3 (00:31→18:12)
[2016-11-16] MEDS: METHADONE HCL 40 MG DISPERSABLE TABLET PO SCH ×2 (07:18→10:08)
[2016-11-16] MEDS: PRENATAL VITAMINS W/ FOLIC ACID TABLET (FP) PO SCH (10:08)
[2016-11-16] MEDS: FLUOCINONIDE 0.05% TOP OINT (60 GM TUBE) TP SCH ×4 (10:08→22:37)
[2016-11-16] MEDS: diazePAM 5 MG TABLET PO SCH ×2 (10:08→22:15)
[2016-11-16] MEDS: NICOTINE 14 MG/24 HOURS TOPICAL PATCH TD SCH (10:08)
--- NOTE | 2016-11-16 12:12 | PN ---
[facility] CIWA - CIWA Score Nausea/Vomitin-Mild Nausea/No Vomiting Muscle Tremors: 3 Anxiety: 4-Mod. Anxious/Guarded Agitation: 3 Paroxysmal Sweats: 3 Orientation: 0-Oriented Tacttile Disturbances: 0-None Auditory Disturbances: 2-Mild Harshness/Frighten Visual Disturbances: 2-Mild Sensitivity Headache: 0-None Present CIWA-Ar Total Score: 18 BHS Progress Note (SOAP) Subjective: Anxious, Interrupted sleep, Body Aches, Tremors. Objective: PT. A & O X 3, OBSERVED AMBULATING ON UNIT. NO ACUTE DISTRESS. 11/16/16 12:10 Vital Signs Temperature 97.0 F L 11/16/16 09:40 Pulse Rate 66 11/16/16 09:40 Respiratory Rate 20 11/16/16 09:40 Blood Pressure 131/84 11/16/16 09:40 O2 Sat by Pulse Oximetry (%) Laboratory Tests 11/14/16 11/15/16 11/15/16 22:15 07:00 07:00 WBC 7.2 RBC 4.82 Hgb 13.7 Hct 40.8 MCV 84.7 MCHC 33.6 RDW 13.1 Plt Count 217 D MPV 7.6 Sodium Potassium Chloride Carbon Dioxide Anion Gap BUN Creatinine Creat Clearance w eGFR Random Glucose Calcium Total Bilirubin AST ALT Alkaline Phosphatase Total Protein Albumin Urine Color Yellow Urine Appearance Turbid Urine pH 5.0 Ur Specific [place] >= 1.030 H Urine Protein Negative Urine Glucose (UA) Negative Urine Ketones Trace H Urine Blood Negative Urine Nitrite Negative Urine Bilirubin Negative Urine Urobilinogen Negative Ur Leukocyte Esterase Negative RPR Titer Nonreactive 11/15/16 07:00 WBC RBC Hgb Hct MCV MCHC RDW Plt Count MPV Sodium 140 Potassium 4.1 Chloride 102 Carbon Dioxide 28 Anion Gap 10 BUN 15 Creatinine 0.8 Creat Clearance w eGFR > 60 Random Glucose 86 Calcium 8.5 Total Bilirubin 0.5 D AST 27 ALT 57 D Alkaline Phosphatase 75 D Total Protein 6.1 L Albumin 3.4 Urine Color Urine Appearance Urine pH Ur Specific [place] Urine Protein Urine Glucose (UA) Urine Ketones Urine Blood Urine Nitrite Urine Bilirubin Urine Urobilinogen Ur Leukocyte Esterase RPR Titer LABS NOTED. Assessment: 11/16/16 12:11 WITHDRAWAL SYMPTOMS. Plan: CONTINUE DETOX.
--- NOTE | 2016-11-16 14:19 | EKG ---
Test Reason : Blood Pressure : / mmHG Vent. Rate : 062 BPM Atrial Rate : 062 BPM P-R Int : 214 ms QRS Dur : 098 ms QT Int : 432 ms P-R-T Axes : 073 075 057 degrees QTc Int : 438 ms SINUS RHYTHM WITH 1ST DEGREE A-V BLOCK POSSIBLE LEFT ATRIAL ENLARGEMENT WHEN COMPARED WITH ECG OF 15-JUL-2016 17:40, NO SIGNIFICANT CHANGE WAS FOUND Confirmed by DANYELL WOLFF MD ([id number]) on 11/16/2016 2:18:57 PM Referred By: Confirmed By:DANYELL WOLFF MD
[2016-11-16] MEDS: THIAMINE HCL 100 MG TABLET (FP) PO SCH (22:15)
[2016-11-16] MEDS: QUEtiapine FUMARATE 200 MG TABLET PO SCH (22:47)
[2016-11-17] MEDS: diazePAM 5 MG TABLET PO PRN ×4 (00:56→14:33)
[2016-11-17] MEDS: METHADONE HCL 40 MG DISPERSABLE TABLET PO SCH (10:11)
[2016-11-17] MEDS: PRENATAL VITAMINS W/ FOLIC ACID TABLET (FP) PO SCH (10:11)
[2016-11-17] MEDS: FLUOCINONIDE 0.05% TOP OINT (60 GM TUBE) TP SCH ×4 (10:12→22:02)
[2016-11-17] MEDS: NICOTINE 14 MG/24 HOURS TOPICAL PATCH TD SCH (10:13)
[2016-11-17] MEDS: diazePAM 5 MG TABLET PO SCH ×2 (10:59→22:02)
--- NOTE | 2016-11-17 14:07 | PN ---
[facility] Progress Note (SOAP) Subjective: Fatigue, Anxious. Objective: PT. A & O X 3, OBSERVED AMBULATING ON UNIT. NO ACUTE DISTRESS. 11/17/16 14:06 Vital Signs Temperature 98.0 F 11/17/16 13:58 Pulse Rate 63 11/17/16 13:58 Respiratory Rate 20 11/17/16 13:58 Blood Pressure 126/77 11/17/16 13:58 O2 Sat by Pulse Oximetry (%) Laboratory Tests 11/14/16 11/15/16 11/15/16 22:15 07:00 07:00 WBC 7.2 RBC 4.82 Hgb 13.7 Hct 40.8 MCV 84.7 MCHC 33.6 RDW 13.1 Plt Count 217 D MPV 7.6 Sodium Potassium Chloride Carbon Dioxide Anion Gap BUN Creatinine Creat Clearance w eGFR Random Glucose Calcium Total Bilirubin AST ALT Alkaline Phosphatase Total Protein Albumin Urine Color Yellow Urine Appearance Turbid Urine pH 5.0 Ur Specific [place] >= 1.030 H Urine Protein Negative Urine Glucose (UA) Negative Urine Ketones Trace H Urine Blood Negative Urine Nitrite Negative Urine Bilirubin Negative Urine Urobilinogen Negative Ur Leukocyte Esterase Negative RPR Titer Nonreactive 11/15/16 07:00 WBC RBC Hgb Hct MCV MCHC RDW Plt Count MPV Sodium 140 Potassium 4.1 Chloride 102 Carbon Dioxide 28 Anion Gap 10 BUN 15 Creatinine 0.8 Creat Clearance w eGFR > 60 Random Glucose 86 Calcium 8.5 Total Bilirubin 0.5 D AST 27 ALT 57 D Alkaline Phosphatase 75 D Total Protein 6.1 L Albumin 3.4 Urine Color Urine Appearance Urine pH Ur Specific [place] Urine Protein Urine Glucose (UA) Urine Ketones Urine Blood Urine Nitrite Urine Bilirubin Urine Urobilinogen Ur Leukocyte Esterase RPR Titer LABS NOTED. Assessment: 11/17/16 14:06 WITHDRAWAL SYMPTOMS. Plan: CONTINUE DETOX.
[2016-11-17] MEDS: THIAMINE HCL 100 MG TABLET (FP) PO SCH (22:02)
[2016-11-17] MEDS: QUEtiapine FUMARATE 200 MG TABLET PO SCH (22:02)
[2016-11-18 09:04] VITALS: BP 130/79; PULSE 61; TEMP 97.6
[2016-11-18] MEDS: FLUOCINONIDE 0.05% TOP OINT (60 GM TUBE) TP SCH (09:25)
[2016-11-18] MEDS: PRENATAL VITAMINS W/ FOLIC ACID TABLET (FP) PO SCH (09:25)
[2016-11-18] MEDS: METHADONE HCL 40 MG DISPERSABLE TABLET PO SCH (09:26)
[2016-11-18] MEDS: NICOTINE 14 MG/24 HOURS TOPICAL PATCH TD SCH (09:26)
[2016-11-18] MEDS ORDERED: diazePAM 5 MG TABLET PO SCH (10:00)
--- NOTE | 2016-11-18 11:22 | DS ---
[facility] Detox Discharge Summary Admission Date: 11/14/16 Discharge Date: 11/18/16 - History Present History: Alcohol Dependence, Cocaine Dependence, Sedative Dependence Pertinent Past History: Denies - Physical Exam Results Vital Signs: Vital Signs Temperature 97.6 F 11/18/16 09:03 Pulse Rate 61 11/18/16 09:03 Respiratory Rate 18 11/18/16 09:03 Blood Pressure 130/79 11/18/16 09:03 O2 Sat by Pulse Oximetry (%) Pertinent Admission Physical Exam Findings: Withdrawal symptoms Laboratory Tests 11/14/16 11/15/16 11/15/16 22:15 07:00 07:00 WBC 7.2 RBC 4.82 Hgb 13.7 Hct 40.8 MCV 84.7 MCHC 33.6 RDW 13.1 Plt Count 217 D MPV 7.6 Sodium Potassium Chloride Carbon Dioxide Anion Gap BUN Creatinine Creat Clearance w eGFR Random Glucose Calcium Total Bilirubin AST ALT Alkaline Phosphatase Total Protein Albumin Urine Color Yellow Urine Appearance Turbid Urine pH 5.0 Ur Specific [place] >= 1.030 H Urine Protein Negative Urine Glucose (UA) Negative Urine Ketones Trace H Urine Blood Negative Urine Nitrite Negative Urine Bilirubin Negative Urine Urobilinogen Negative Ur Leukocyte Esterase Negative RPR Titer Nonreactive 11/15/16 07:00 WBC RBC Hgb Hct MCV MCHC RDW Plt Count MPV Sodium 140 Potassium 4.1 Chloride 102 Carbon Dioxide 28 Anion Gap 10 BUN 15 Creatinine 0.8 Creat Clearance w eGFR > 60 Random Glucose 86 Calcium 8.5 Total Bilirubin 0.5 D AST 27 ALT 57 D Alkaline Phosphatase 75 D Total Protein 6.1 L Albumin 3.4 Urine Color Urine Appearance Urine pH Ur Specific [place] Urine Protein Urine Glucose (UA) Urine Ketones Urine Blood Urine Nitrite Urine Bilirubin Urine Urobilinogen Ur Leukocyte Esterase RPR Titer Labs noted - Treatment Hospital Course: Detox Protocol Followed, Detoxed Safely, Responded well, Discharged Condition Good - Medication Discharge Medications: Ambulatory Orders Clobetasol Propionate [Temovate] 30 gm TP BID 04/17/15 Quetiapine Fumarate [Seroquel -] 400 mg PO HS #30 tablet 02/21/16 - Diagnosis (1) Alcohol dependence with uncomplicated withdrawal Status: Acute (2) Cocaine dependence, uncomplicated Status: Chronic (3) Nicotine dependence Status: Chronic Qualifiers: Nicotine product type: cigarettes Substance use status: in withdrawal Qualified Code(s): F17.213 - Nicotine dependence, cigarettes, with withdrawal (4) Sedative, hypnotic or anxiolytic dependence with withdrawal, uncomplicated Status: Acute (5) Bipolar disorder Status: Chronic Qualifiers: Active/Remission status: remission status unspecified Qualified Code(s) : F31.9 - Bipolar disorder, unspecified (6) Methadone maintenance therapy patient Status: Chronic - AMA Did Patient Leave Against Medical Advice: No
== END 2016-11-18 10:13 | disposition home or self-care (01) | DRG 897 ==
LOC: YASAS 12:56 → Y3N 18:17
PROVIDERS: ADMIT Internal Medicine; ATTEND Internal Medicine
PROC: HZ2ZZZZ Detoxification Services for Substance Abuse Treatment (ICD-10-PCS; principal; 2016-11-14)
DX: F13.230 Sedative, hypnotic or anxiolytic dependence with withdrawal, uncomplicated (principal); F11.20 Opioid dependence, uncomplicated; F14.20 Cocaine dependence, uncomplicated; F31.81 Bipolar II disorder; F10.230 Alcohol dependence with withdrawal, uncomplicated; F17.213 Nicotine dependence, cigarettes, with withdrawal; F43.10 Post-traumatic stress disorder, unspecified; L40.9 Psoriasis, unspecified
CPT/HCPCS: 36415; 80053; 81003; 85027; 86593; 93005; 93010